=== PATIENT | female | born 1970 | race Caucasian/White ===

== ENCOUNTER 2022-08-22 17:31 | Emergency (ER) | payer SELFPAY ==
[2022-08-22] VITALS (7 sets, daily range): BP systolic 107–144; BP diastolic 59–85
[~2022-08-22] VITALS: Ht 152.4 cm; Wt 42.0 kg
[2022-08-22 18:25] LABS: BASO% 0.3 % (0-3); EOS% 0.6 % (0-8); HEMATOCRIT 38.6 % (37.0-47.0); HEMOGLOBIN 12.8 g/dl (12.0-16.0); IMMATURE GRANULOCYTES 0.1 % (0.0-5.0); LYMPH% 46.9 % (15-41); MEAN CELL VOLUME 87.9 fL CALC (80.0-100.0); MEAN CORPUSCULAR HGB 29.2 pG CALC (26.0-32.0); MEAN CORPUSCULAR HGB CONC 33.2 g/dL CAL (32.0-36.0); MONO% 6.4 % (2-13); NEUT# 3.28 thou/uL (2.00-7.15); NEUT% 45.7 % (42-76); RED BLOOD COUNT 4.39 mill/uL (4.20-5.60)
[2022-08-22 18:39] LABS: ALBUMIN 4.2 g/dL (3.2-5.0); ALKALINE PHOSPHATASE 67 u/l (38-126); ANION GAP 10 (6-22 (CALC)); BILIRUBIN, TOTAL 0.4 mg/dL (0.0-1.4); BUN 4 mg/dL (7-17); BUN/CREATININE RATIO 7 (12-20 (CALC)); CARBON DIOXIDE 30 mmol/l (22-30); CHLORIDE 108 mmol/l (95-108); CREATININE 0.6 mg/dL (0.5-1.0); GFR FOR AFR.AMER. > 60 ML/MIN (>=60 (CALC)); GFR OTHER RACES > 60 ML/MIN (>=60 (CALC)); LIPASE 54 u/l (23-300); POTASSIUM 3.3 mmol/l (3.5-5.1); SGOT/AST 23 u/l (14-36); SODIUM 145 mmol/l (137-146); TOTAL PROTEIN 7.6 g/dL (6.3-8.2)
[2022-08-22 19:31] LABS: URINE BILIRUBIN - DIPSTICK NEGATIVE (NEGATIVE); URINE BLOOD DIPSTICK NEGATIVE (NEGATIVE); URINE COLOR YELLOW; URINE GLUCOSE - DIPSTICK NEGATIVE (NEGATIVE); URINE KETONE NEGATIVE (NEGATIVE); URINE LEUK ESTERASE NEGATIVE (NEGATIVE); URINE PH 6.5 (4.5-8.0); URINE PROTEIN - DIPSTICK NEGATIVE (NEG-TRACE); URINE UROBILINOGEN - DIPSTICK 0.2 E.U./dL (0.2)
[2022-08-22 19:41] LABS: URINE NITRITE - DIPSTICK NEGATIVE (Negative)
[2022-08-22] MEDS ORDERED: PROTONIX40 M2 PO (20:13)
[2022-08-22] MEDS ORDERED: XANAX0.5 MG PO (20:15)
[2022-08-22] MEDS ORDERED: PEPCID20 MG PO (20:15)
== END 2022-08-22 20:38 | disposition home or self-care (01) | DRG 392 ==
LOC: ED 17:31
PROVIDERS: Nurse Practitioner
DX: K21.9 Gastro-esophageal reflux disease without esophagitis (principal); F41.9 Anxiety disorder, unspecified
CPT/HCPCS: J2060; S0164

== ENCOUNTER 2022-12-26 16:31 | Emergency (ER) | payer SELFPAY ==
[~2022-12-26] VITALS: Ht 152.4 cm; Wt 53.5 kg
[~2022-12-26 16:31] MED LIST: PEPCID20 MG PO; PROTONIX40 M2 PO; XANAX0.5 MG PO
[2022-12-26 16:51] VITALS: BP 128/87
[2022-12-26] MEDS ORDERED: PREDNISONE20 MG PO (18:17)
[2022-12-26] MEDS ORDERED: ZPAK PO (18:17)
[2022-12-26 18:38] VITALS: BP 128/87
== END 2022-12-26 18:41 | disposition home or self-care (01) | DRG 203 ==
LOC: ED 16:31
DX: J45.901 Unspecified asthma with (acute) exacerbation (principal); K21.9 Gastro-esophageal reflux disease without esophagitis; F17.200 Nicotine dependence, unspecified, uncomplicated

== ENCOUNTER 2023-04-26 18:23 | Emergency (ER) | payer OTHER ==
[2023-04-26] VITALS (11 sets, daily range): BP systolic 104–129; BP diastolic 71–89
[~2023-04-26] VITALS: Ht 152.4 cm; Wt 58.0 kg
[~2023-04-26 18:23] MED LIST changes: +PREDNISONE20 MG PO; +ZPAK PO
[2023-04-26 19:14] LABS: BASO% 0.3 % (0-3); EOS% 0.6 % (0-8); HEMATOCRIT 38.8 % (37.0-47.0); HEMOGLOBIN 12.7 g/dl (12.0-16.0); IMMATURE GRANULOCYTES 0.1 % (0.0-5.0); LYMPH% 32.5 % (15-41); MEAN CELL VOLUME 88.2 fL CALC (80.0-100.0); MEAN CORPUSCULAR HGB 28.9 pG CALC (26.0-32.0); MEAN CORPUSCULAR HGB CONC 32.7 g/dL CAL (32.0-36.0); MONO% 5.9 % (2-13); NEUT# 5.49 thou/uL (2.00-7.15); NEUT% 60.6 % (42-76); RED BLOOD COUNT 4.4 mill/uL (4.20-5.60); RED CELL DISTRI WIDTH 13.4 % (11.5-15.5)
[2023-04-26 19:24] LABS: LIPASE 32 u/l (23-300)
[2023-04-26 19:26] LABS: ALBUMIN 4.1 g/dL (3.2-5.0); ALKALINE PHOSPHATASE 68 u/l (38-126); ANION GAP 11 (6-22 (CALC)); BILIRUBIN, TOTAL 0.7 mg/dL (0.02-1.3); BUN 4 mg/dL (7-17); BUN/CREATININE RATIO 6 (12-20 (CALC)); CARBON DIOXIDE 25 mmol/l (22-30); CHLORIDE 105 mmol/l (95-108); CREATININE 0.7 mg/dL (0.5-1.0); GFR FOR AFR.AMER. > 60 ML/MIN (>=60 (CALC)); GFR OTHER RACES > 60 ML/MIN (>=60 (CALC)); POTASSIUM 3.6 mmol/l (3.5-5.1); SGOT/AST 27 u/l (14-36); SODIUM 138 mmol/l (137-146); TOTAL PROTEIN 7.3 g/dL (6.3-8.2)
[2023-04-26 19:36] LABS: ACT PARTIAL THROMBO TIME 26.7 SECONDS (20.0-32.5); INTERNATIONAL NORMALIZED RATIO 1.1 RATIO (0.7-1.3); PROTHROMBIN TIME 10.7 SECONDS (9.0-12.5)
[2023-04-26] MEDS ORDERED: TORADOL PO (22:19)
== END 2023-04-26 22:42 | disposition home or self-care (01) ==
LOC: ED 18:23
PROVIDERS: Family Medicine
DX: R07.9 Chest pain, unspecified (principal); F17.210 Nicotine dependence, cigarettes, uncomplicated
CPT/HCPCS: Q9967

== ENCOUNTER 2024-10-28 06:31 | Day surgery (SDC) | payer OTHER ==
[~2024-10-28] VITALS: Ht 152.4 cm; Wt 64.4 kg
[~2024-10-28 06:31] MED LIST changes: +TORADOL PO
[2024-10-28] MEDS ORDERED: SODIUM CHLORIDE 0.9% 10 ML SYR ONE ×2 (06:46→06:53)
[2024-10-28] MEDS ORDERED: KETOROLAC10 MG PO (06:47)
[2024-10-28] MEDS ORDERED: FLEXERIL5 M1 PO (06:48)
[2024-10-28] MEDS ORDERED: XANAX0.5 MG PO (06:49)
[2024-10-28] MEDS ORDERED: FAMOTIDINE20 M1 PO (06:50)
[2024-10-28] MEDS ORDERED: LEXAPRO10 MG PO (06:51)
[2024-10-28] MEDS ORDERED: PROVENTIL0.083 % IN (06:55)
[2024-10-28] MEDS ORDERED: LIDOCAINE HCL 1% (10MG/ML) 100 MG/10 ML MDV ONE (07:02)
[2024-10-28] MEDS ORDERED: BUPIVACAINE HCL PF 0.5 % 50 MG/10 ML SDV ONE (07:02)
[2024-10-28] MEDS ORDERED: TRIAMCINOLONE ACETONIDE 40 MG/ML ML ONE (07:02)
[2024-10-28] MEDS ORDERED: Iopamidol 61% 5 ML SYR IV ONE (08:18)
[2024-10-28 09:07] VITALS: BP 111/80
== END 2024-10-28 08:02 | disposition home or self-care (01) ==
LOC: ORM 06:31
PROVIDERS: ATTEND Student in an Organized Health Care Education/Training Program
DX: M54.89 Other dorsalgia (principal); M54.2 Cervicalgia
CPT/HCPCS: J3301; Q9967